=== PATIENT | male | born 1990 | race Caucasian/White ===

== ENCOUNTER 2016-12-06 12:42 | Emergency (ER) | payer SELFPAY ==
[~2016-12-06] VITALS: Ht 185.4 cm; Wt 87.1 kg
[~2016-12-06 12:42] MED LIST: CLON0.5T20 PO; LAMO150T3 PO; SULF1TAB24
[2016-12-06 12:59] VITALS: BP 105/65
[2016-12-06] MEDS ORDERED: DEXAMETHASONE 4 MG/ML, 1ML PO ONE (13:30)
== END 2016-12-06 13:49 | disposition home or self-care (01) ==
LOC: ED 13:43
DX: H66.002 Acute suppurative otitis media without spontaneous rupture of ear drum, left ear (principal)
CPT/HCPCS: 99283